=== PATIENT | female | born 1965 | race Caucasian/White ===

== ENCOUNTER 2018-06-22 12:23 | Emergency (ER) | payer BC ==
[2018-06-22] MEDS ORDERED: Ondansetron ODT 4 MG TAB ONE (13:07)
[2018-06-22 13:12] LABS: Clarity Clear (Clear); Leukocyte Negative (Negative); Specific Gravity, Urine 1.015 (1.005-1.030); pH, Urine 6.5 (5.0-9.0)
[2018-06-22 13:13] LABS: Bilirubin Negative (Negative); Blood, Urine Negative (Negative); Glucose, Urine (Dipstick) Negative (Negative); Nitrite Negative (Negative); Protein, Urine (Dipstick) Negative (Neg-Trace); Urobilinogen 0.2 mg/dL (0.2-1.0)
--- NOTE | 2018-06-22 17:50 | CT ---
CT ABDOMEN AND PELVIS WITHOUT CONTRAST: 06/22/18 Axial slices were acquired, then coronal and sagittal reconstructions were done. The lung bases are clear. A moderate sized hiatal hernia is present. the liver, spleen, pancreas, adr enal glands, kidneys, and abdominal aorta showed no acute finding within the limitations of a noncont rast study. There has been a prior cholecystectomy. There is some lobulation to the renal contours, p articularly on the right. This could be congenital in nature or scarring due to prior infections. No significant renal calculi were seen. There is no sign of obvious renal mass or obstruction. The bowel shows no distention or bowel wall thickening. No free air or free fluid was seen in the abd omen. CT of the pelvis shows no pelvic masses, fluid collections or inflammatory changes. Incidental findin g were some small disc bulges at L3-4 and L5-S1. IMPRESSION: 1. No evidence of urinary tract obstruction. 2. Moderate sized hiatal hernia. POS: HOME
== END 2018-06-22 13:53 | disposition home or self-care (01) ==
LOC: BURERS 12:23
DX: M54.9 Dorsalgia, unspecified (principal); I10 Essential (primary) hypertension; F41.9 Anxiety disorder, unspecified; E03.9 Hypothyroidism, unspecified; Z79.891 Long term (current) use of opiate analgesic; Z79.899 Other long term (current) drug therapy
CPT/HCPCS: 74176; 81003; 87086; Q0162

== ENCOUNTER 2019-07-01 14:36 | Emergency (ER) | payer BC ==
[2019-07-01 15:02] LABS: Bilirubin Negative (Negative); Blood, Urine Negative (Negative); Clarity Clear (Clear); Glucose, Urine (Dipstick) Negative (Negative); Leukocyte Negative (Negative); Nitrite Negative (Negative); Protein, Urine (Dipstick) Negative (Neg-Trace); Urobilinogen 0.2 mg/dL (Less than 2)
[2019-07-01] MEDS ORDERED: Ibuprofen 800 MG TAB ONE (15:04)
[2019-07-01] MEDS ORDERED: HYDROcodone/Acetaminophen 10/325 mg Tablet ONE (15:04)
--- NOTE | 2019-07-01 15:45 | CT ---
Exam: Abdomen CT without contrast Pelvic CT without contrast HISTORY: Left flank pain. COMPARISON: 06/22/2018 FINDINGS: Abdomen CT: Lung bases:Clear Heart size: Normal heart size Aorta: Normal caliber Solid organs: Limited evaluation due to lack of IV contrast. Grossly no solid organ abnormality Lymph nodes: No gastrohepatic, retrocrural or periportal lymphadenopathy Gallbladder: Surgically absent Mesentery: No mass, lymphadenopathy, free air or free fluid Kidneys: Scarring in the lower pole right kidney. Bilaterally no hydronephrosis, nephrolithiasis or p erinephric fat stranding. Bilateral ureters have a normal caliber. No hydroureter, periureteral fat stranding or ureterolithiasis Alimentary canal: Limited evaluation due to lack of oral contrast. No evidence of bowel obstruction. Ileocecal junction is unremarkable. Normal caliber appendix. Decompressed colon. Stable moderate hiatal hernia. CT PELVIS: No mass, adenopathy, free air or free fluid. Surgically absent uterus Urinary bladder: Unremarkable. Osseous structures: No lytic or blastic lesions IMPRESSION: 1. No evidence of obstructive uropathy. 2. Normal caliber appendix.
== END 2019-07-01 16:00 | disposition home or self-care (01) ==
LOC: BURERS 14:36
DX: M54.5 Low back pain (principal); E03.9 Hypothyroidism, unspecified; I10 Essential (primary) hypertension; E11.9 Type 2 diabetes mellitus without complications; Z79.84 Long term (current) use of oral hypoglycemic drugs; Z79.899 Other long term (current) drug therapy
CPT/HCPCS: 74176; 81003

== ENCOUNTER 2022-03-30 22:15 | Emergency (ER) | payer BC ==
[2022-03-30] MEDS ORDERED: Iopamidol 370 76% 100 ML VIAL FS ONE (22:16)
[2022-03-30 23:06] LABS: #Eosinphils 0.1 thou/uL (0.0-0.7); #Lymphocytes 0.9 thou/uL (1.20-3.40); #Monocytes 0.8 thou/uL (0.11-0.59); %Basophils 0.2 % (0.0-1.0); %Eosinophils 0.9 % (0.0-10.0); %Lymphocytes 5.9 % (21.0-51.0); %Monocytes 5.2 % (0.0-10.0); %Neutrophils 87.8 % (42.0-75.0); Hemoglobin 15.7 g/dL (12.0-16.0); Mean Corpuscular HGB CONC 34.4 g/dL (32.0-36.0); Mean Corpuscular Volume 96.2 fL (78.0-98.0); Mean Platelet Volume 6.2 fL (7.4-10.4); Platelet Count 267 thou/uL (130-400); RBC Distribution Width 11.6 % (11.5-14.5); Red Blood Cell (RBC) Count 4.74 mill/uL (4.20-5.40); White Blood Cell (WBC) Count 15.9 thou/uL (4.8-10.8)
[2022-03-30 23:26] LABS: ALT (SGPT) 18 U/L (8-55); AST (SGOT) 25 U/L (5-34); Albumin 4.4 g/dL (3.5-5.0); Alkaline Phosphatase 69 U/L (40-110); Anion Gap 18 mmol/L (10-20); BUN (Urea Nitrogen) 13 mg/dL (9.8-20.1); Bilirubin, Total 0.8 mg/dL (0.2-1.2); Calc. Creatinine Clearance 0 mL/min (70-130); Calcium 8.7 mg/dL (7.8-10.44); Carbon Dioxide 23 mmol/L (22-29); Chloride 105 mmol/L (98-107); Glucose 137 mg/dL (70-105); Lipase 54 U/L (8-78); Protein, Total 7.4 g/dL (6.0-8.3); Sodium 142 mmol/L (136-145)
[2022-03-30 23:27] LABS: BHCG - Serum Negative (NEGATIVE); Pregs Control Background? CLEAR/WHITE (CLR/WHITE); Pregs Control Bar Appear? YES (CONTROL BAR)
[2022-03-30] MEDS ORDERED: Morphine 4 MG/ML VIAL ONE (23:37)
[2022-03-30] MEDS ORDERED: Ondansetron PF 4 MG/2 ML Vial ONE (23:38)
[2022-03-30] MEDS ORDERED: Pantoprazole 40 MG VIAL ONE (23:38)
[2022-03-31] MEDS ORDERED: Morphine 4 MG/ML VIAL ONE (01:16)
[2022-03-31] MEDS ORDERED: Promethazine HCl 25 MG SUPP ONE (01:16)
[2022-03-31] MEDS ORDERED: Ciprofloxacin Lactate/D5W 400 mg/200 ml Premix ONE (01:17)
[2022-03-31] MEDS ORDERED: Promethazine HCl 25 MG/ML VIAL ONE (01:17)
[2022-03-31] MEDS ORDERED: metroNIDAZOLE 500 MG/100 ML BAG ONE (01:34)
== END 2022-03-31 03:00 | disposition home or self-care (01) ==
LOC: BURERS 22:15
DX: K52.9 Noninfective gastroenteritis and colitis, unspecified (principal); K56.7 Ileus, unspecified
CPT/HCPCS: 36415; 74177; 80053; 83605; 83690; 84703; 85025; 96374; 96375; 96376; C9113; J0744; J2270; J2405; J2550; Q9967